=== PATIENT | male | born 1995 | race Caucasian/White ===

== ENCOUNTER 2017-02-06 15:45 | Emergency (ER) | payer OTHER ==
[~2017-02-06] VITALS: Ht 180.3 cm; Wt 57.5 kg
[2017-02-06 15:49] VITALS: Ht 180.3 cm; Wt 57.5 kg
[2017-02-06] MEDS ORDERED: DIPHENHYDRAMINE 50 MG INJ IM ONE (16:30)
[2017-02-06] MEDS ORDERED: FAMOTIDINE 20 MG TAB PO ONE (16:30)
[2017-02-06] MEDS ORDERED: METHYLPREDNISOLONE 125 MG INJ IM ONE (16:30)
[2017-02-06] MEDS ORDERED: PRED20TA PO (16:38)
[2017-02-06] MEDS ORDERED: EPIN0.3P4 INJ (16:38)
[2017-02-06] MEDS ORDERED: BEN25 PO (16:38)
[2017-02-06] MEDS ORDERED: FAMO-18 PO (16:38)
--- NOTE | 2017-02-06 16:43 | ERD ---
ER Documentation Chief Complaint Date/Time DATE: 02/06/17 TIME: 16:27 Chief Complaint LEFT FOOT BEE STING TODAY WITH HIVES HPI 21 yo male comes to the emergency room with a bee sting that happened to the bottom of his left foot this afternoon. He states it happened this afternoon while he was at the pool, he stepped on the grass and felt a sharp sting to the bottom of his foot. Subsequently, 2 hours later he developed a rash is pruritic on his trunk. He states he did not have any new foods or medications, lotions or creams. He did go into the pool however the itchiness is across the trunk and part of his arms only. He has no trouble swelling, voice changes, chest pain or shortness of breath. ROS All systems reviewed and are negative except as per history of present illness. Allergies Allergies: Coded Allergies: No Known Allergy (Unverified , 02/06/17) PMhx/Soc Medical and Surgical Hx: pt denies Medical Hx, pt denies Surgical Hx History of Surgery: No Anesthesia Reaction: No Hx Neurological Disorder: No Hx Respiratory Disorders: No Hx Cardiac Disorders: No Hx Psychiatric Problems: No Hx Miscellaneous Medical Probl: No Hx Alcohol Use: No Hx Substance Use: Yes (marijuana) Hx Tobacco Use: No Smoking Status: Never smoker Physical Exam Vitals Vital Signs Date Time Temp Pulse Resp B/P Pulse Ox O2 Delivery O2 Flow Rate FiO2 02/06/17 15:49 98.3 72 18 127/58 98 Physical Exam General: Well-developed, well-nourished. The patient appears in no acute distress. HEENT: Head is normocephalic, atraumatic. No scleral icterus. Oropharynx is clear, no angioedema. Neck: Supple. Nontender. Lungs: Clear to auscultation. Normal air movement. Heart: Regular rate and rhythm. S1 and S2 are normal. No murmurs, gallops, or rubs. Abdomen: Soft, nontender, nondistended. Bowel sounds are normoactive. Extremities: No clubbing or cyanosis. Normal pulses. Moving extremities x 4. No weakness. Neurologic: Alert and oriented 3. No focal deficits. Skin: Hives across the trunk. Slightly on the proximal upper arms. Legs are uninvolved. There is erythema to the dorsum of the left foot. Results 24 hrs Current Medications Medications (Trade) Dose Ordered Sig/Aubrie Route PRN Reason Start Time Stop Time Status Last Admin Dose Admin Methylprednisolone Sodium Succinate (Solu-Medrol) 125 mg ONCE ONCE IM 02/06/17 16:30 02/06/17 16:31 02/06/17 16:22 Diphenhydramine HCl (Benadryl) 50 mg ONCE ONCE IM 02/06/17 16:30 02/06/17 16:31 02/06/17 16:23 Famotidine (Pepcid) 20 mg ONCE ONCE PO 02/06/17 16:30 02/06/17 16:31 02/06/17 16:22 Procedures/MDM ED course: He was given Solu-Medrol 125 mg IM, Benadryl 25 mg IM, Pepcid 20 mg p.o. He was observed in the emergency department did not have any rebound effects. Medical decision making: This is a 21-year-old male comes in with a bee sting and allergic reaction associated. There is a rash on his trunk that appears to be like hives, it happened about 2 hours after getting stung by a bee and he has swelling over the dorsum of the left foot. I suspect that his reaction is from the bee sting, he states that he did go in the pool however the legs are uninvolved. He has no signs of anaphylaxis, any rebound effects. He will be given epi-pen, prednisone, Pepcid, as well as Benadryl for home. He was medicated here in emergency department, was stable and felt better and will be discharged home. Patient did not require epinephrine, or further management of her hospital admission. Departure Diagnosis: Primary Impression: Bee sting Condition: DARYA Negrete PA-C Feb 06, 2017 16:43
[2017-02-06 17:23] VITALS: BP 117/67; PULSE 76; RESP 19; TEMP 98.1
== END 2017-02-06 17:24 | disposition home or self-care (01) ==
LOC: FTE 15:45
DX: T63.441A Toxic effect of venom of bees, accidental (unintentional), initial encounter (principal)
CPT/HCPCS: J1200; J2930; Z7610; 96372